=== PATIENT | female | born 1980 | race Caucasian/White ===

== ENCOUNTER 2018-10-23 10:52 | Emergency (ER) | payer OTHER ==
--- NOTE | 2018-10-23 11:46 | RAD REPORT ---
EXAM DESCRIPTION: Amber Single View10/23/2018 11:40 am CLINICAL HISTORY: Chest pain COMPARISON: July 2018 FINDINGS: The lungs appear clear of acute infiltrate. The heart is normal size IMPRESSION: No acute abnormalities displayed
[2018-10-23 11:50] LABS: Absolute Monocytes 0.4 K/uL (0.1-1.3); Absolute Neutrophil 2.5 K/uL (1.8-8.0); Basophils % 0.5 % (0-1.3); Eosinophils % 0.7 % (0-4.4); Hematocrit 40.5 % (36.0-45.0); Lymphocytes % 25.8 % (15.3-44.8); MPV 9.3 fL (7.6-11.3); Monocytes % 10.5 % (3.3-12.3); RBC Red Blood Cell Count 4.17 M/uL (3.86-4.86)
[2018-10-23 11:52] LABS: Protime INR 1.05
[2018-10-23 12:06] LABS: ALT/SGPT 32 U/L (12-78); AST/SGOT 29 U/L (15-37); Albumin 4.2 g/dL (3.4-5.0); Alkaline Phosphatase 51 U/L (45-117); BUN Blood Urea Nitrogen 7 mg/dL (7-18); Bicarbonate 25 mmol/L (21-32); Bilirubin Direct 0.2 mg/dL (0-0.2); Bilirubin Total 0.7 mg/dL (0.2-1.0); Glucose Level 94 mg/dL (74-106); Magnesium 1.9 mg/dL (1.8-2.4); NT PRO-BNP 59 pg/mL (<125); Potassium 4.1 mmol/L (3.5-5.1); Protein, Total 8.4 g/dL (6.4-8.2); Sodium Level 140 mmol/L (136-145); Troponin (Emerg Dept Use Only) < 0.02 ng/mL (0.0-0.045)
[2018-10-23] MEDS ORDERED: METOPROLOL TAR 25 MG TAB ONE (12:37)
[2018-10-23] MEDS ORDERED: ASPIRIN 81 MG CHEWABLE TABLET ONE (12:37)
--- NOTE | 2018-10-23 15:13 | EDPHYS ---
Physician Documentation [facility] Name: Evelyne Branch Age: 38 yrs Sex: Female : 1980 Arrival Date: 10/23/2018 Time: 10:55 Bed 4 Private MD: ED Physician Hayden Pelayo HPI: 10/23 15:18 This 38 yrs old Female presents to ER via Ambulatory with complaints of Chest kdr Pain. 15:18 The patient or guardian reports chest pain that is located primarily in the anterior kdr chest wall, left. The pain does not radiate. Associated signs and symptoms: The patient has no apparent associated signs or symptoms. The chest pain is described as Twinges to left chest. Duration: The patient or guardian reports multiple episodes, that are intermittent, that wax and wane, with no pattern. Modifying factors: The symptoms are alleviated by rest, Exacerbation by cycling in a spin class. Discomfort never completely resolves. Severity of pain: At its worst the pain was mild moderate just prior to arrival, in the emergency department the pain is unchanged. The patient has not experienced similar symptoms in the past. The patient has not recently seen a physician. 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 - Social history:: Smoking status: Patient/guardian denies using tobacco. - Ebola Screening: : Patient denies travel to an Ebola-affected area in the 21 days before illness onset. ROS: 15:18 Constitutional: Negative for fever, chills, and weight loss, Eyes: Negative for injury, kdr pain, redness, and discharge, ENT: Negative for injury, pain, and discharge, Neck: Negative for injury, pain, and swelling, Respiratory: Negative for shortness of breath, cough, wheezing, and pleuritic chest pain, Abdomen/GI: Negative for abdominal pain, nausea, vomiting, diarrhea, and constipation, Back: Negative for injury and pain, : Negative for injury, bleeding, discharge, and swelling, MS/Extremity: Negative for injury and deformity, Skin: Negative for injury, rash, and discoloration, Neuro: Negative for headache, weakness, numbness, tingling, and seizure activity. Psych: Negative for depression, anxiety, suicide ideation, homicidal ideation, and hallucinations, Allergy/Immunology: Negative for hives, rash, and allergies, Endocrine: Negative for neck swelling, polydipsia, polyuria, polyphagia, and marked weight changes, Hematologic/Lymphatic: Negative for swollen nodes, abnormal bleeding, and unusual bruising. 15:18 Cardiovascular: Positive for chest pain, palpitations, Negative for edema, orthopnea, paroxysmal nocturnal dyspnea, acute changes. Exam: 15:18 Constitutional: This is a well developed, well nourished patient who is awake, alert, kdr and in no acute distress. Head/Face: Normocephalic, atraumatic. Eyes: Pupils equal round and reactive to light, extra-ocular motions intact. Lids and lashes normal. Conjunctiva and sclera are non-icteric and not injected. Cornea within normal limits. Periorbital areas with no swelling, redness, or edema. Neck: Trachea midline, no thyromegaly or masses palpated, and no cervical lymphadenopathy. Supple, full range of motion without nuchal rigidity, or vertebral point tenderness. No Meningismus. Chest/axilla: Normal chest wall appearance and motion. Nontender with no deformity. No lesions are appreciated. Cardiovascular: Regular rate and rhythm with a normal S1 and S2. No gallops, murmurs, or rubs. Normal PMI, no JVD. No pulse deficits. Respiratory: Lungs have equal breath sounds bilaterally, clear to auscultation and percussion. No rales, rhonchi or wheezes noted. No increased work of breathing, no retractions or nasal flaring. Back: No spinal tenderness. No costovertebral tenderness. Full range of motion. Skin: Warm, dry with normal turgor. Normal color with no rashes, no lesions, and no evidence of cellulitis. MS/ Extremity: Pulses equal, no cyanosis. Neurovascular intact. Full, normal range of motion. Neuro: Awake and alert, GCS 15, oriented to person, place, time, and situation. Cranial nerves II-XII grossly intact. Motor strength 5/5 in all extremities. Sensory grossly intact. Cerebellar exam normal. Normal gait. Psych: Awake, alert, with orientation to person, place and time. Behavior, mood, and affect are within normal limits. Vital Signs: 11:22 BP 132 / 100; Pulse 81; Resp 13; Temp 98.2; Pulse Ox 100% on R/A; Weight 62.14 kg (R); aj1 Height 5 ft. 4 in. (162.56 cm) (R); Pain 3/10; 12:44 BP 134 / 94; Pulse 77; Resp 18; Pulse Ox 100% on R/A; aj1 14:30 BP 126 / 106; Pulse 75; Resp 20; Pulse Ox 100% on R/A; aj1 15:29 BP 127 / 89; Pulse 76; Resp 18; Temp 98.1; Pulse Ox 99% on R/A; ss 11:22 Body Mass Index 23.52 (62.14 kg, 162.56 cm) aj1 MDM: 15:12 Patient medically screened. kdr 15:18 Data reviewed: vital signs, nurses notes, lab test result(s), radiologic studies. kdr Counseling: I had a detailed discussion with the patient and/or guardian regarding: the historical points, exam findings, and any diagnostic results supporting the discharge/admit diagnosis, lab results, radiology results, the need for outpatient follow up. Special discussion: Based on the patient's history, exam, and Dx evaluation, there is no indication for emergent intervention or inpatient Tx. It is understood by the patient/guardian that if the Sx's persist or worsen they need to return immediately for re-evaluation. 10/23 11:17 Order name: Basic Metabolic Panel; Complete Time: 12:20 [facility] 10/23 11:17 Order name: CBC with Diff; Complete Time: 12:20 [facility] 10/23 11:17 Order name: LFT's; Complete Time: 12:20 [facility] 10/23 11:17 Order name: Magnesium; Complete Time: 12:20 [facility] 10/23 11:17 Order name: NT PRO-BNP; Complete Time: 12:20 [facility] 10/23 11:17 Order name: PT-INR; Complete Time: 12:20 [facility] 10/23 11:17 Order name: Troponin (emerg Dept Use Only); Complete Time: 12:20 [facility] 10/23 11:17 Order name: XRAY Chest (1 view); Complete Time: 12:20 kdr 10/23 11:17 Order name: EKG; Complete Time: 11:18 [facility] 10/23 12:19 Order name: DD; Complete Time: 14:34 [facility] 10/23 12:19 Order name: TSH; Complete Time: 13:16 [facility] 10/23 13:22 Order name: Troponin (emerg Dept Use Only); Complete Time: 15:11 [facility] 10/23 11:17 Order name: Cardiac monitoring; Complete Time: : [facility] 10/23 11:17 Order name: EKG - Nurse/Tech; Complete Time: 11:33 [facility] 10/23 11:17 Order name: IV Saline Lock; Complete Time: 11:40 [facility] 10/23 11:17 Order name: Labs collected and sent; Complete Time: : [facility] 10/23 11:17 Order name: O2 Per Protocol; Complete Time: [facility] 10/23 11:17 Order name: O2 Sat Monitoring; Complete Time: [facility] Administered Medications: 12:41 Drug: Aspirin Chewable Tablet 324 mg Route: PO; aj 12:41 Drug: Lopressor 25 mg {Note: HR 85 BP 134/94.} Route: PO; aj1 Disposition: 10/23/18 15:12 Discharged to Home. Impression: Chest pain, unspecified. - Condition is Stable. - Discharge Instructions: Nonspecific Chest Pain, [id number]. - Prescriptions for Ibuprofen 600 mg Oral Tablet - take 1 tablet by ORAL route every 6 hours As needed take with food; 30 tablet. - Medication Reconciliation Form, Thank You Letter, Antibiotic Education, Prescription Opioid Use form. - Follow up: Private Physician; When: 2 - 3 days; Reason: If symptoms return, Further diagnostic work-up, Recheck today's complaints, Continuance of care, Re-evaluation by your physician. - Problem is new. - Symptoms have improved. Signatures: Dispatcher [employer] EDRonda Todd RN RN aj1 Hayden Pelayo MD MD kdr Misti Aguilar RN RN ss Corrections: (The following items were deleted from the chart) 15:30 15:12 10/23/2018 15:12 Discharged to Home. Impression: Chest pain, unspecified. ss Condition is Stable. Forms are Medication Reconciliation Form, Thank You Letter, Antibiotic Education, Prescription Opioid Use. Follow up: Private Physician; When: 2 - 3 days; Reason: If symptoms return, Further diagnostic work-up, Recheck today's complaints, Continuance of care, Re-evaluation by your physician. Problem is new. Symptoms have improved. kdr
--- NOTE | 2018-10-23 15:13 | ER ---
Nurse's Notes [facility] Name: Evelyne Branch Age: 38 yrs Sex: Female : 1980 Arrival Date: 10/23/2018 Time: 10:55 Bed 4 Private MD: Diagnosis: Chest pain, unspecified Presentation: 10/23 11:17 Presenting complaint: Patient states: She has been having intermittent chest tightness aj1 for the past 3 days that is worse with exercise. Today the tightness is worse and more persistent than it has been previously. Patient reports a "light cough". Transition of care: patient was not received from another setting of care. Onset of symptoms was October 20, 2018. Risk Assessment: Do you want to hurt yourself or someone else? Patient reports no desire to harm self or others. Initial Sepsis Screen: Does the patient meet any 2 criteria? No. Patient's initial sepsis screen is negative. Does the patient have a suspected source of infection? No. Patient's initial sepsis screen is negative. Care prior to arrival: None. 11:17 Method Of Arrival: Ambulatory aj1 11:17 Acuity: NAE 3 aj1 Triage Assessment: 11:22 General: Appears in no apparent distress. comfortable, Behavior is calm, cooperative, aj1 appropriate for age. Pain: Complains of pain in anterior aspect of left upper chest. Cardiovascular: Reports chest pain. 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 - Social history:: Smoking status: Patient/guardian denies using tobacco. - Ebola Screening: : Patient denies travel to an Ebola-affected area in the 21 days before illness onset. Screenin:23 Abuse screen: Denies threats or abuse. Denies injuries from another. Nutritional aj1 screening: No deficits noted. Tuberculosis screening: No symptoms or risk factors identified. 15:29 Fall Risk None identified. ss Assessment: 11:23 General: Appears in no apparent distress. comfortable, Behavior is calm, cooperative, aj1 appropriate for age. Pain: Complains of pain in anterior aspect of left upper chest Pain does not radiate. Pain currently is 3 out of 10 on a pain scale. Quality of pain is described as tightness Pain began 2-3 days ago. Is intermittent, Aggravated by increased activity. Neuro: Level of Consciousness is awake, alert, obeys commands, Oriented to person, place, time, situation. Cardiovascular: Reports chest pain, Denies shortness of breath, Heart tones S1 S2 present Patient's skin is warm and dry. Rhythm is sinus rhythm. Respiratory: Airway is patent Respiratory effort is even, unlabored, Respiratory pattern is regular, symmetrical, Breath sounds are clear bilaterally. GI: No signs and/or symptoms were reported involving the gastrointestinal system. : No signs and/or symptoms were reported regarding the genitourinary system. EENT: No signs and/or symptoms were reported regarding the EENT system. Derm: No signs and/or symptoms reported regarding the dermatologic system. Skin is pink, warm \\T\\ dry. normal. Musculoskeletal: No signs and/or symptoms reported regarding the musculoskeletal system. Circulation, motion, and sensation intact. 12:44 Reassessment: Patient appears in no apparent distress at this time. No changes from aj1 previously documented assessment. Patient and/or family updated on plan of care and expected duration. Pain level reassessed. Patient is alert, oriented x 3, equal unlabored respirations, skin warm/dry/pink. 13:45 Reassessment: Patient appears in no apparent distress at this time. No changes from aj1 previously documented assessment. Patient and/or family updated on plan of care and expected duration. Pain level reassessed. Patient is alert, oriented x 3, equal unlabored respirations, skin warm/dry/pink. 14:29 Reassessment: Patient appears in no apparent distress at this time. No changes from aj1 previously documented assessment. Patient and/or family updated on plan of care and expected duration. Pain level reassessed. Patient is alert, oriented x 3, equal unlabored respirations, skin warm/dry/pink. 15:27 Reassessment: Patient appears in no apparent distress at this time. Patient and/or ss family updated on plan of care and expected duration. Pain level reassessed. Patient is alert, oriented x 3, equal unlabored respirations, skin warm/dry/pink. Pt d/c home. Vital Signs: 11:22 BP 132 / 100; Pulse 81; Resp 13; Temp 98.2; Pulse Ox 100% on R/A; Weight 62.14 kg (R); aj1 Height 5 ft. 4 in. (162.56 cm) (R); Pain 3/10; 12:44 BP 134 / 94; Pulse 77; Resp 18; Pulse Ox 100% on R/A; aj1 14:30 BP 126 / 106; Pulse 75; Resp 20; Pulse Ox 100% on R/A; aj1 15:29 BP 127 / 89; Pulse 76; Resp 18; Temp 98.1; Pulse Ox 99% on R/A; ss 11:22 Body Mass Index 23.52 (62.14 kg, 162.56 cm) aj1 ED Course: 10:55 Patient arrived in ED. mr 11:17 Hayden Pelayo MD is Attending Physician. kdr 11:17 Ronda Amezquita, SILVINO is Primary Nurse. aj1 11:20 Triage completed. aj1 11:22 Arm band placed on Patient placed in an exam room. aj1 11:23 Patient has correct armband on for positive identification. Bed in low position. Call aj1 light in reach. equipment monitor phototypesetting on. Pulse ox on. NIBP on. 11:23 No provider procedures requiring assistance completed. Patient maintains SpO2 aj1 saturation greater than 95% on room air. 11:36 Initial lab(s) drawn, by vt, sent to lab. Inserted saline lock: 20 gauge in right dh3 antecubital area, using aseptic technique. Blood collected. 11:37 X-ray completed. Portable x-ray completed in exam room. Patient tolerated procedure jb2 well. 11:38 EKG done, by electroencephalographic technician. reviewed by Hayden Pelayo MD. at1 11:39 XRAY Chest (1 view) In Process Unspecified. EDMS 15:29 IV discontinued, intact, bleeding controlled, No redness/swelling at site. Pressure ss dressing applied. Administered Medications: 12:41 Drug: Aspirin Chewable Tablet 324 mg Route: PO; aj1 12:41 Drug: Lopressor 25 mg {Note: HR 85 BP 134/94.} Route: PO; aj1 Outcome: 15:12 Discharge ordered by . kdr 15:27 Discharged to home ambulatory. ss 15:27 Condition: good 15:27 Discharge instructions given to patient, Instructed on discharge instructions, follow up and referral plans. medication usage, Demonstrated understanding of instructions, follow-up care, medications, Prescriptions given X 1. 15:30 Patient left the ED. Signatures: Dispatcher [employer] EDRonda Todd, RN RN aj1 Hayden Pelayo MD MD kdr Rivera, Mary mr Johnny Narayan jb2 Misti Aguilar RN RN Joann Ashby, hearing specialist EKG [facility]1 Ally Ash 3
--- NOTE | 2018-10-23 15:45 | EKG ---
Test Date: 2018-10-23 Test Time: 11:34:41 Service Coordinator: BETTIE MEASUREMENT RESULTS: Intervals: Rate: 77 IA: 150 QRSD: 86 QT: 414 QTc: 468 Peculiar: P: 28 IA: 150 QRS: 67 T: 62 INTERPRETIVE STATEMENTS: Normal sinus rhythm Normal ECG Compared to ECG 08/24/2016 15:56:05 No significant changes Electronically Signed On 10-23-18 15:44:38 CREW DIRECTOR by Kaden Carrington
[2018-10-23 15:54] VITALS: BP 127/89; TEMP 98.1; O2SAT 99
== END 2018-10-23 15:30 | disposition home or self-care (01) ==
LOC: ER 10:52
DX: R07.9 Chest pain, unspecified (principal); I10 Essential (primary) hypertension
CPT/HCPCS: 36415; 71045; 80048; 80076; 83735; 83880; 84443; 84484; 85025; 85379; 85610; 93005; 99285